=== PATIENT | male | born 1990 | race Caucasian/White ===

== ENCOUNTER 2023-04-03 08:45 | Outpatient (AMB) | payer OTHER, SELFPAY ==
--- NOTE | 2023-04-03 09:25 | AM.OFFWIN_ITS ---
Intake Vital Signs 04/03/23 09:26 Height 5 ft 6 in Weight 273 lb BMI 44.1 BP 150/82 H Blood Pressure Location Rt brachial Position Sitting Pulse 66 Pulse Source Pulse Oximeter Temp 97.8 F Temp Source Temporal Artery Scan Pulse Oximetry (%) 97 Oxygen Delivery Method Room Air Intake Visit Reasons: EP, WC, low back pain [phone] Intake Note: pt is here for c.o low back pain suspects broken tail bone or bruising while at work yesterday Patient Tobacco Use Status: Never used Tobacco Allergies No Known Allergies Allergy (Verified 04/03/23 09:26) Do you need a note to return to daycare/school/sports/work: Yes HPI HPI Comments History of Present Illness Details This is a 32-year-old male who presents to the office today for sick visit. Patient complaining of tailbone pain. Patient states he slipped and fell yesterday landed directly on his tailbone. He did low back pain, he states the pain is localized to his tailbone. He denies any numbness/weakness/paresthesias of his lower extremities. He denies any saddle anesthesia. He denies any fevers or chills. He denies bowel/bladder retention/incontinence. [facility] Social History Patient Tobacco Use Status: Never used Tobacco Review of Systems Const All systems reviewed & are unremarkable except as noted in HPI and below Reports no additional complaints Eyes Reports no additional complaints ENT Reports no additional complaints Card Reports no additional complaints Resp Reports no additional complaints GI Reports no additional complaints Reports no additional complaints Musc Reports no additional complaints Skin/Breast Reports system reviewed and no additional complaints, except as documented Neuro Reports no additional complaints Psych Reports no additional complaints Endo Reports no additional complaints Tyler/Lymph Reports no additional complaints Aller/Immun Reports no additional complaints Physical Exam Const Other: Vital signs reviewed. Constitutional: Non-toxic appearing. No acute distress. Well-developed and well-nourished. HEENT: Normocephalic and atraumatic. Skin: Warm and dry. No rashes or lesions noted. Neck: Full and painless range of motion. No cervical lymphadenopathy. Cardio: Regular rate. No lower extremity edema. No JVD. Pulmonary: No respiratory distress. No accessory muscle usage. Gastrointestinal: Soft, nontender, and nondistended in all 4 quadrants. Musculoskeletal: Normal range of motion in joints throughout the body. No deformity or other signs of injury. Neuro: Alert and oriented x4. Cranial nerves 2-12 grossly intact. No focal deficits appreciated. Psych: Normal mood and affect. Assessment & Plan Assessment & Plan (1) Coccyodynia: Code(s): M53.3 - Sacrococcygeal disorders, not elsewhere classified Plan: This is a 32-year-old male presenting to the office complaining of tailbone pain slip and fall that occurred yesterday. Patient states the pain is localized to his tailbone, he denies any low back pain or red flag symptoms. Differential diagnoses includes coccygeal fracture versus contusion. Check pelvic x-ray to evaluate for coccygeal fracture. Regardless of x-ray results, the management remains the same. Recommended symptomatic management including rest/activity modification, sitting on soft surfaces, leaning forward while sitting, utilizing a donut cushion for sitting, ibuprofen/acetaminophen for pain management, and ice/heat to the area. Patient was made aware that this can take weeks to months to fully heal. Patient was advised to follow-up here proceed to the emergency room for worsening/persistent symptoms. He was advised to follow up directly with the emergency room if he were to develop any red flag symptoms as listed above. Patient verbalizes understanding and he is in agreement with the plan. Orders: Orders XR pelvis 1-2V Today M53.3 - Sacrococcygeal disorders, not elsewhere classified Coding Level of Care Code Est Pt Level 3 (91741) Diagnoses Coccyodynia M53.3
[2023-04-03 09:26] VITALS: BP 150/82; PULSE 66; TEMP 36.6; O2SAT 97; BMI 44.1
== END 2023-04-03 09:44 | disposition home or self-care (01) ==
PROVIDERS: PCP Pediatrics; Visit Provider Physician Assistant Medical
DX: M53.3 Sacrococcygeal disorders, not elsewhere classified (principal)
CPT/HCPCS: 99213

== ENCOUNTER 2023-04-03 09:38 | Outpatient (REF) | payer OTHER, SELFPAY ==
--- NOTE | ~2023-04-03 | XR_ITS ---
EXAMINATION: XR SACRUM AND COCCYX CLINICAL INFORMATION: Status post fall. Sacrococcygeal pain. COMPARISON: None available. TECHNIQUE: 2 views of the sacrum and 2 views of the coccyx were obtained. FINDINGS: The sacrum is partially obscured by overlying bowel contents. Sacroiliac joints and pubic symphysis are intact. Surgical clips project over the right lower quadrant. There is fusion of the coccygeal segments. There is focal widening at the sacrococcygeal articulation. XR/XR sacrum coccyx min 2V IMPRESSION: Fusion of the coccygeal segments with focal widening at the sacrococcygeal articulation. Could this represent age-indeterminate fracture?
== END 2023-04-03 09:39 | disposition home or self-care (01) ==
LOC: HO.HMGCX 09:38
PROVIDERS: Visit Provider Physician Assistant Medical
DX: M53.3 Sacrococcygeal disorders, not elsewhere classified (principal)
CPT/HCPCS: 72220